=== PATIENT | male | born 1990 | race Caucasian/White ===

== ENCOUNTER 2021-04-08 15:15 | Outpatient (CLI) | payer OTHER | END 2021-04-08 15:16 | disposition home or self-care (01) | LOC: BICRAD 15:15 | PROVIDERS: ATTEND Nurse Practitioner Family | DX: S60.921A Unspecified superficial injury of right hand, initial encounter (principal); S52.501A Unspecified fracture of the lower end of right radius, initial encounter for closed fracture; S52.601A Unspecified fracture of lower end of right ulna, initial encounter for closed fracture ==